=== PATIENT | female | born 1970 | race American Indian/Alaskan Native ===

== ENCOUNTER 2018-04-01 09:05 | Outpatient (CLI) | payer BC ==
--- NOTE | 2018-04-01 12:06 | Nuclear Medicine Report ---
HEPATOBILIARY SCAN: History: Gallstone, fatty liver, colon cancer Following the injection of the radionuclide, serial scanning was obtained over the right upper quadrant. Initial imaging of the liver demonstrates a relatively normal activity pattern within the liver. There is prompt visualization of the central biliary ducts, common bile duct and proximal small bowel loops. There is no convincing visualization of the gallbladder out to 2 hours. CCK was not administered. IMPRESSION: Nonvisualization of the gallbladder on HIDA scan. Acute cholecystitis cannot be excluded. Please correlate with the patient's clinical presentation.
== END 2018-04-01 09:06 | disposition home or self-care (01) ==
LOC: NM 09:05
PROVIDERS: ATTEND Internal Medicine Gastroenterology
DX: K80.10 Calculus of gallbladder with chronic cholecystitis without obstruction (principal); K76.0 Fatty (change of) liver, not elsewhere classified; C18.9 Malignant neoplasm of colon, unspecified; E11.9 Type 2 diabetes mellitus without complications; E66.9 Obesity, unspecified; F41.9 Anxiety disorder, unspecified
CPT/HCPCS: 78226; A9537

== ENCOUNTER 2018-05-19 14:32 | Emergency (ER) | payer BC ==
[2018-05-19 14:54] VITALS: BP 153/87
[2018-05-19] MEDS ORDERED: NACL 0.9% 1000 ML 1,000 ML IV ONE ×2 (17:03)
--- NOTE | 2018-05-19 17:04 | Emergency Department Report ---
Blank Doc - Documentation Documentation: Patient is a 47-year-old [place] female who is presenting with elevated blood sugar. Patient saw her primary care physician today the blood sugar was in the 300 range. Patient has had some increased thirst urinary frequency and nausea. Patient states there is also a strong odor to her urine as well. Patient does feel fatigued. Brief physical exam patient's heart and lungs and abdomen are within normal limits. Patient given IV fluids we'll check her electrolytes as well as urinalysis. Patient will be reassessed.
[2018-05-19 17:22] LABS: Basophils % (Auto) 0.2 % (0.0-1.8); Eosinophils # (Auto) 0.1 K/mm3 (0.0-0.4); Eosinophils % (Auto) 1.1 % (0.0-4.3); Hematocrit 40.2 % (30.3-42.9); Hemoglobin 13.3 gm/dl (10.1-14.3); Lymphocytes # (Auto) 2.1 K/mm3 (1.2-5.4); Lymphocytes % (Auto) 41.5 % (13.4-35.0); Mean Corpuscular HGB Conc 33 % (30-34); Mean Corpuscular Hemoglobin 29 pg (28-32); Mean Corpuscular Volume 87 fl (79-97); Monocytes # (Auto) 0.5 K/mm3 (0.0-0.8); Monocytes % (Auto) 9.1 % (0.0-7.3); Platelet Count 162 K/mm3 (140-440); Red Blood Count 4.64 M/mm3 (3.65-5.03); Red Cell Distribution Width 12.8 % (13.2-15.2)
[2018-05-19 17:50] LABS: Bilirubin,Urine NEG (Negative); Blood,Urine NEG (Negative); Color,Urine Yellow (Yellow); Mucus,Urine FEW /HPF; Protein,Urine <15 mg/dL mg/dL (Negative)
[2018-05-19 17:53] LABS: WBC,Urine < 1.0 /HPF (0.0-6.0)
[2018-05-19 18:06] LABS: BUN/Creatinine Ratio 13; Blood Urea Nitrogen 12 mg/dL (7-17); Calcium 8.7 mg/dL (8.4-10.2); Hemolysis Index 24
--- NOTE | 2018-05-19 20:24 | Emergency Department Report ---
ED General Adult HPI - General Chief complaint: Hyperglycemia Stated complaint: BLOOD SUGAR HIGH Time Seen by Provider: 05/19/18 16:56 Source: patient Mode of arrival: Ambulatory Limitations: No Limitations - History of Present Illness Initial comments: Patient is a 47-year-old [place] female who is presenting with elevated blood sugar. Patient saw her primary care physician today the blood sugar was in the 300 range. Patient has had some increased thirst urinary frequency and nausea. Patient states there is also a strong odor to her urine as well. Patient does feel fatigued. Brief physical exam patient's heart and lungs and abdomen are within normal limits. Patient admits that she does not know much about about diabetes. -: This afternoon - Related Data Previous Rx's Medication Instructions Recorded Last Taken Type Ibuprofen [Motrin] 800 mg PO Q8HR PRN #30 tablet 02/27/16 Unknown Rx oxyCODONE /ACETAMINOPHEN [Percocet 1 tab PO Q6HR PRN #30 tablet 02/27/16 Unknown Rx 5/325] Allergies Allergy/AdvReac Type Severity Reaction Status Date / Time Sulfa (Sulfonamide Allergy itching, Verified 02/21/16 15:44 Antibiotics) swelling ED Review of Systems ROS: Stated complaint: BLOOD SUGAR HIGH Other details as noted in HPI Constitutional: no symptoms reported Endocrine: no symptoms reported Gastrointestinal: denies: abdominal pain, nausea, diarrhea Neurological: headache ED Past Medical Hx - Past Medical History Hx Diabetes: Yes Hx Headaches / Migraines: Yes - Surgical History Past Surgical History?: Yes Additional Surgical History: tubiligation - Social History Smoking Status: Never Smoker Substance Use Type: None - Medications Home Medications: Home Medications Medication Instructions Recorded Confirmed Last Taken Type Ibuprofen [Motrin] 800 mg PO Q8HR PRN #30 tablet 02/27/16 Unknown Rx oxyCODONE /ACETAMINOPHEN [Percocet 1 tab PO Q6HR PRN #30 tablet 02/27/16 Unknown Rx 5/325] ED Physical Exam - General Limitations: No Limitations General appearance: alert, in no apparent distress - Head Head exam: Present: atraumatic, normocephalic - Eye Eye exam: Present: normal appearance - ENT ENT exam: Present: mucous membranes moist - Neck Neck exam: Present: normal inspection - Respiratory Respiratory exam: Present: normal lung sounds bilaterally. Absent: respiratory distress - Cardiovascular Cardiovascular Exam: Present: regular rate, normal rhythm. Absent: systolic murmur, diastolic murmur, rubs, gallop - GI/Abdominal GI/Abdominal exam: Present: soft, normal bowel sounds - Extremities Exam Extremities exam: Present: normal inspection - Back Exam Back exam: Present: normal inspection - Neurological Exam Neurological exam: Present: alert, oriented X3 - Psychiatric Psychiatric exam: Present: normal affect, normal mood - Skin Skin exam: Present: warm, dry, intact, normal color. Absent: rash ED Course Vital Signs 05/19/18 05/19/18 14:46 18:19 Temperature 98.1 F Pulse Rate 83 Respiratory 18 16 Rate Blood Pressure 153/87 O2 Sat by Pulse 100 Oximetry ED Medical Decision Making - Lab Data Result diagrams: 05/19/18 17:11 05/19/18 18:50 - Medical Decision Making Condition has been evaluated by this provider in fast track as well as Dr. Trent. Patient's blood sugars come down to 280. Discussed the patient I will refer her to her primary care provider as well as the basic combatant swimmer. Patient verbalized understanding Critical care attestation.: If time is entered above; I have spent that time in minutes in the direct care of this critically ill patient, excluding procedure time. ED Disposition Clinical Impression: Acute hyperglycemia Disposition: DC-01 TO HOME OR SELFCARE Is pt being admited?: No Does the pt Need Aspirin: No Condition: Stable Instructions: Managing Diabetes During Sick Days (ED), Diabetic Hyperglycemia ( ED) Additional Instructions: Please follow up with her primary care provider for diabetic education. Referrals: PRIMARY CARE, [Primary Care Provider] - 3-5 Days MARIA TERESA GUTIERREZ MD [Staff Physician] - 3-5 Days SUSHMA STRICKLAND JR, MD [Staff Physician] - 3-5 Days RIANNA JANG MD [Staff Physician] - 3-5 Days NARINDER GORDILLO MD [Referring] - 3-5 Days CHIRAG DILL MD [Staff Physician] - 3-5 Days Forms: Work/School Release Form(ED), Accompanied Note
== END 2018-05-19 20:25 | disposition home or self-care (01) ==
LOC: ED 14:32
DX: E11.65 Type 2 diabetes mellitus with hyperglycemia (principal); G43.909 Migraine, unspecified, not intractable, without status migrainosus; R19.7 Diarrhea, unspecified; Z88.2 Allergy status to sulfonamides; Z98.51 Tubal ligation status
CPT/HCPCS: 36415; 80048; 81001; 82962; 84132; 85025; 96360; 96361; 99283; J7030

== ENCOUNTER 2018-05-27 06:03 | Day surgery (SDC) | payer BC ==
[~2018-05-27 06:03] MED LIST: ANCEF/STERILE WATER 2 GM/20 ML 2 GM/20 ML SYRINGE IV NR; ANCEF/STERILE WATER 2 GM/20 ML 2 GM/20 ML SYRINGE IV SCH; NACL 0.9% 1000 ML 1,000 ML IV SCH; NEURONTIN PO SCH; ceFAZolin 2 GM in NACL 0.9% 100 ML IV ONE
[2018-05-27] MEDS ORDERED: NACL BACTERIOSTATIC INFILTRATI ONE (06:44)
[2018-05-27] MEDS ORDERED: NACL 0.9% 250ML 250 ML ONE (06:50)
[2018-05-27] MEDS ORDERED: XYLOCAINE 1% 20 mL ONE (06:50)
[2018-05-27] MEDS ORDERED: MARCAINE 0.5% 30 ML INFILTRATI ONE (06:50)
[2018-05-27] MEDS ORDERED: DIPRIVAN 10 MG/ML IV ONE (07:20)
[2018-05-27] MEDS ORDERED: XYLOCAINE MPF 2% ONE (07:21)
[2018-05-27] MEDS ORDERED: ZEMURON IV ONE (07:21)
[2018-05-27] MEDS ORDERED: SUBLIMAZE ONE (07:21)
[2018-05-27] MEDS ORDERED: DILAUDID IV PRN (07:30)
[2018-05-27] MEDS ORDERED: ZOFRAN IV PRN (07:30)
[2018-05-27] MEDS ORDERED: VERSED IV NR (08:00)
[2018-05-27] MEDS ORDERED: LACTATED RINGERS 1,000 ML IV SCH ×2 (08:00)
[2018-05-27] MEDS ORDERED: NACL 0.9% IR ONE (08:06)
[2018-05-27] MEDS ORDERED: XYLOCAINE 1% 20 mL INFILTRATI ONE ×2 (08:06)
[2018-05-27] MEDS ORDERED: MARCAINE 0.5% INFILTRATI ONE ×2 (08:06)
[2018-05-27] MEDS ORDERED: NACL 0.9% 250ML IV ONE (08:07)
--- NOTE | 2018-05-27 08:07 | Anesthesia Day of Surgery ---
Anesthesia Day of Surgery - Day of Surgery Patient Examined: Yes Patient H&P Reviewed: Yes Patient is NPO: Yes
--- NOTE | 2018-05-27 08:08 | Anesthesia Consultation ---
Anesthesia Consult and Med Hx Date of service: 05/27/18 - Airway Anesthetic Teeth Evaluation: Good ROM Head & Neck: Adequate Mental/Hyoid Distance: Adequate Mallampati Class: Class II Intubation Access Assessment: Probably Good - Pulmonary Exam CTA: Yes - Cardiac Exam Cardiac Exam: RRR - Pre-Operative Health Status ASA Pre-Surgery Classification: ASA2 Proposed Anesthetic Plan: General (DM, Hyperlipd) - Central Nervous System Hx Psychiatric Problems: No - Endocrine Hx Non-Insulin Dependent Diabetes: Yes (newly diagnosed, not on meds) Hx Hypothyroidism: Yes (NO MEDS) - Other Systems Hx Alcohol Use: Yes ([facility]) Hx Substance Use: Yes (MARIJUANA) Hx Cancer: No
[2018-05-27] MEDS ORDERED: ZOFRAN ONE (08:43)
[2018-05-27] MEDS ORDERED: TORADOL ONE (08:47)
[2018-05-27] MEDS ORDERED: BLOXIVERZ ONE (08:53)
[2018-05-27] MEDS ORDERED: ROBINUL ONE (08:53)
[2018-05-27] MEDS ORDERED: DILAUDID ONE (08:56)
--- NOTE | 2018-05-27 09:04 | Short Stay Summary ---
Short Stay Documentation Date of service: 05/27/18 - History H&P: obtained from office - Allergies and Medications Current Medications: Allergies Sulfa (Sulfonamide Antibiotics) Allergy (Verified 05/26/18 10:09) itching, swelling Home Medications Medication Instructions Recorded Confirmed Last Taken Type AtorvaSTATin [Lipitor] 20 mg PO QHS 05/26/18 05/26/18 05/26/18 22:00 History metFORMIN [Glucophage] 500 mg PO BID 05/26/18 05/26/18 05/26/18 22:00 History Active Medications Gabapentin (Neurontin) 600 mg PO PREOP JESSICA Last Admin: 05/27/18 06:55 Dose: 600 mg Hydromorphone HCl (Dilaudid) 0.5 mg IV Q10MIN PRN PRN Reason: Pain , Severe (7-10) Stop: 05/27/18 15:00 Cefazolin Sodium (Ancef/Sterile Water 2 Gm/20 Ml) 2 gm in 20 mls @ 80 mls/hr IV PREOP NR; Protocol Stop: 05/27/18 23:59 Sodium Chloride (Nacl 0.9% 1000 Ml) 1,000 mls @ 75 mls/hr IV DIRECT JESSICA Last Admin: 05/27/18 07:00 Dose: 75 mls/hr Lactated Ringer's (Lactated Ringers) 1,000 mls @ 42 mls/hr IV DIRECT JESSICA Midazolam HCl (Versed) 2 mg IV PREOP NR Stop: 05/27/18 23:59 Ondansetron HCl (Zofran) 4 mg IV ONCE PRN PRN Reason: Nausea And Vomiting Stop: 05/27/18 16:00 - Physical exam General appearance: no acute distress Integumentary: no rash Lungs: Normal air movement - Brief post op/procedure progress note Date of procedure: 05/27/18 (Dictation:[id number]) Pre-op diagnosis: biliary dyskinesia Post-op diagnosis: same Procedure: lap padma with IOC Anesthesia: GETA Findings: large, slightly thickened GB. Normal IOC. Mild adhesions noted to GB Surgeon: HOMERO DANIEL Estimated blood loss: minimal (<10cc) Pathology: list (gallbladder) Specimen disposition: to lab Condition: stable - Disposition Condition at discharge: Stable Disposition: DC-01 TO HOME OR SELFCARE Short Stay Discharge Plan Activity: no driving until cleared by PCP Diet: regular Wound: open to air, keep clean and dry, other (May shower tomorrow. Pat dry wounds. apply ice to wounds 4-5x/day for 10min at a time. ) Special Instructions: no heavy lifting (or strenuous activity for 6 weeks) Follow up with: PRIMARY CAREMD [Primary Care Provider] - 7 Days HOMERO DANIEL MD [Staff Physician] - 14 Days Prescriptions: HYDROcodone/ACETAMINOPHEN [Verdrocet 2.5-325 mg TAB] 2 each PO Q6H PRN #40 tablet PRN Reason: Pain , Severe (7-10)
--- NOTE | 2018-05-27 09:13 | Fluoroscopy Report ---
FLUOROSCOPY CHOLANGIOGRAM OPERATIVE History: Biliary dyskinesia. Findings: A single fluoroscopic image of the right upper quadrant was obtained during surgery. There is contrast agent in the biliary tree and descending duodenum. Cholecystectomy changes are suspected. No evidence for biliary filling defect, abnormal dilatation or biliary leak. Please correlate with the procedural report by Dr. Ott if needed. Impression: Unremarkable intraoperative cholangiogram.
[2018-05-27] MEDS ORDERED: REGLAN IV PRN (09:39)
--- NOTE | 2018-05-27 09:45 | Post Anesthesia Evaluation ---
- Post Anesthesia Evaluation Patient Participated: Yes Airway Patent: Yes Stable Respiratory Function: Yes Nausea/Vomiting: No Temp > 96.8F: Yes Pain Manageable: Yes Adequeate Hydration: Yes Anesthesia Complications: No
[2018-05-27] MEDS ORDERED: REGLAN ONE (09:47)
--- NOTE | 2018-05-27 11:04 | Operative Report ---
PREOPERATIVE DIAGNOSIS: Biliary dyskinesia. POSTOPERATIVE DIAGNOSIS: Biliary dyskinesia. PROCEDURE: Laparoscopic cholecystectomy with intraoperative cholangiogram. ATTENDING PHYSICIAN: Caterina Ott MD ANESTHESIA: General. ESTIMATED BLOOD LOSS: Minimal, less than 10 mL. FLUIDS: 1300 mL. FINDINGS: Large, slightly thickened gallbladder with mild adhesions to surrounding omentum, normal intraoperative cholangiogram. SPECIMEN: Gallbladder. DRAINS: None. COMPLICATIONS: None. DISPOSITION: Stable, transferred to Recovery Room. INDICATIONS: This is a 47-year-old female who presented for evaluation of chronic intermittent abdominal pain. HIDA scan was found to be positive suggestive of nonfunctioning gallbladder with an obstructed or occluded cystic duct. The patient was assessed to be in need for cholecystectomy. Procedure, risks, benefits were explained to the patient. Risks included but were not limited to infection, bleeding, pain, injury to surrounding structures, possible need for open surgery, possible need for further procedures in the future. The patient was then consented. OPERATIVE NOTE: The patient was brought to the operating room and placed on the table in supine position. After adequate general anesthesia was established, the patient was prepped and draped in the usual sterile fashion. The patient had received a preoperative dose of Ancef. She had received gabapentin in the holding area. SCDs were in place. A time-out was called. We began by placing a Veress needle in the left upper quadrant. We were able to insufflate in the first attempt under direct vision, a 5 mm port was placed on the right side of the abdomen using the Optiview technique, we entered the peritoneal cavity safely. I was able to evaluate where the Veress needle had been inserted. There was no injury to the underlying structures. Veress needle was removed and under direct vision, we placed a 12 mm port in the subumbilical position because there was what appeared to be a previous incision, then a 5 mm port was placed in the epigastric area, another one in the right upper quadrant, all under direct vision. All sites had been anesthetized with 0.5% Marcaine and 1% lidocaine, 50:50 mix. We began by taking down the adhesions to the gallbladder, then we were able to further retract this very long, slightly thickened gallbladder over the liver edge. I was able to dissect out the cystic duct, which appeared to be very long. We created a critical view and then a clip was placed proximally and rest of the gallbladder and cystic duct. A small opening was made. Cholangiogram catheter was inserted. Cholangiogram was done. It appeared to be completely normal with very fast emptying into the duodenum and good filling of both left and right hepatic ducts, both myself and the tech did not see anything to suggest a filling defect. We then removed the catheter. I placed 3 clips distally in the cystic duct in relation to the gallbladder. Cystic duct was divided with the Harmonic scalpel. We took the gallbladder off the liver bed with the Harmonic scalpel. We divided the cystic artery with the Harmonic scalpel. The specimen was placed in the EndoCatch bag left on the side. We examined the gallbladder bed and it was completely hemostatic. Clips were in place. There was no bile leakage. I felt very good with this appearance. We then proceeded to remove the gallbladder because it was slightly thickened, enlarged and long. We did have a little difficulty getting it out of the umbilical port site. We had to extend the incision of the fascia as well as the skin and then we were able to remove it because the incision was much larger. Now, we closed with an open technique. We completely desufflated the abdomen. We elevated the fascia and closed the fascia with a [id number] stitch using 0 Vicryl. Hemostasis was achieved with electrocautery. Additional local was injected into the umbilical site since we had to enlarge, 4-0 Monocryl subcuticular stitches were then placed to close the skin. Skin was cleaned and dried. Dermabond was placed. The patient tolerated the procedure well. There were no complications. All counts were correct at the end of the case. I spoke with the at the end of the case, he was very pleased with the care. JOB# [id number] TOMYM/DAVON
[2018-05-27 11:23] VITALS: BP 124/74
== END 2018-05-27 11:07 | disposition home or self-care (01) ==
LOC: OR 06:03
PROVIDERS: ATTEND Surgery
DX: K80.10 Calculus of gallbladder with chronic cholecystitis without obstruction (principal); E11.9 Type 2 diabetes mellitus without complications; E03.9 Hypothyroidism, unspecified; Z72.89 Other problems related to lifestyle
CPT/HCPCS: 47563; 74300; 81025; 82962; 88304; J0690; J1885; J2405; J2704; J2710; J2765; J3010; J7030; J7050; Q9967; J1170